=== PATIENT | male | born 2000 | race Caucasian/White ===

== ENCOUNTER 2021-03-22 16:21 | Emergency (ER) | payer SELFPAY ==
[~2021-03-22] VITALS: Ht 172.7 cm; Wt 75.0 kg
[2021-03-22] MEDS ORDERED: HYDROCODONE/ACETAMINOPHEN 5/325MG TABLET PO ONE (17:00)
[2021-03-22] MEDS ORDERED: ONDANSETRON 4MG ODT PO ONE (17:00)
[2021-03-22 17:29] VITALS: BP 119/68
[2021-03-22] MEDS ORDERED: IBUP-2029 MT (17:53)
== END 2021-03-22 18:07 | disposition home or self-care (01) ==
LOC: ER 16:21
DX: S60.211A Contusion of right wrist, initial encounter (principal); Z79.899 Other long term (current) drug therapy; V49.88XA Car occupant (driver) (passenger) injured in other specified transport accidents, initial encounter; Y93.89 Activity, other specified; Y92.89 Other specified places as the place of occurrence of the external cause; Y99.8 Other external cause status
CPT/HCPCS: 73090; 99283; Q0162

== ENCOUNTER 2024-05-08 09:11 | Emergency (ER) | payer SELFPAY ==
[~2024-05-08] VITALS: Ht 165.1 cm; Wt 63.5 kg
[~2024-05-08 09:11] MED LIST: IBUP-2029 MT
[2024-05-08 09:17] VITALS: O2SAT 99
[2024-05-08 10:00] LABS: HEMATOCRIT. 48.6 % (42.0-52.0); HEMOGLOBIN. 16.6 g/dL (14.0-18.0); MEAN CORPUSCULAR HEMOGLOBIN 29.4 pg (28.0-32.0); MEAN CORPUSCULAR HGB CONC 34.1 g/dL (31.0-37.0); MEAN CORPUSCULAR VOLUME 86.4 fL (80.0-94.0); MEAN PLATELET VOLUME 10.9 fl (7.4-10.4); PLATELET 247 x1000/uL (130-400); RED BLOOD CELL COUNT 5.62 mill/uL (4.7-6.1)
[2024-05-08 10:02] LABS: DIFFERENTIAL COMMENT 1
[2024-05-08] MEDS: ONDANSETRON HCL 4MG/2ML INJ IV ONE (10:02)
[2024-05-08] MEDS: TETANUS, DIPHTHERIA, PERTUSSIS VAC/PF 0.5ML (>10YR OLD) IM ONE (10:02)
[2024-05-08] MEDS: KETOROLAC 15MG/ML VIAL IV ONE (10:02)
[2024-05-08 10:04] LABS: CHLORIDE 103 mEq/L (98-107); POTASSIUM 3.8 mEq/L (3.5-5.1); SODIUM 140 mEq/L (136-145)
[2024-05-08 10:06] LABS: CARBON DIOXIDE 23 mEq/L (21-32)
[2024-05-08 10:07] LABS: CALCIUM 10.6 mg/dL (8.7-10.4)
[2024-05-08 10:12] LABS: CREATININE 1.8 mg/dL (0.6-1.3); GLUCOSE 146 mg/dL (70-105); UREA NITROGEN BLOOD 20 mg/dL (9-23)
[2024-05-08 10:13] LABS: ALBUMIN 5.5 g/dL (3.2-4.8)
[2024-05-08 10:14] LABS: ALANINE AMINOTRANSFERASE 23 IU/L (10-49); ASPARTATE AMINOTRANSFERASE 40 IU/L (<34); BILIRUBIN DIRECT 0.4 mg/dL (<=3.0); BILIRUBIN TOTAL 1.2 mg/dL (0.1-1.0)
[2024-05-08 10:34] LABS: ETHANOL BLOOD < 10 mg/dL (<10)
[2024-05-08 12:41] LABS: CREATINE KINASE 825 IU/L (46-171)
[2024-05-08 12:50] LABS: PLATELET ESTIMATE NORMAL
[2024-05-08] MEDS: SODIUM CHLORIDE 0.9% 1,000 ML IV ONE (12:59)
[2024-05-08] MEDS: METOCLOPRAMIDE HCL 10MG/2ML VIAL IV ONE (12:59)
[2024-05-08 13:18] VITALS: BP 137/78; PULSE 79; RESP 18; TEMP 37.1; O2SAT 99
[2024-05-08] MEDS: IOHEXOL-300 100 ML BOTTLE ONE (15:30)
== END 2024-05-08 16:02 | disposition left against medical advice (07) ==
LOC: ER 09:11 → EDBEDREQ 13:10 → EDBEDREQTM 14:55 → ER 16:02
DX: S09.90XA Unspecified injury of head, initial encounter (principal); R11.2 Nausea with vomiting, unspecified; Y08.89XA Assault by other specified means, initial encounter; Y93.89 Activity, other specified; Y92.89 Other specified places as the place of occurrence of the external cause; Y99.8 Other external cause status
CPT/HCPCS: 80076; 80048; 80320; 82550; 83690; 85025; 36415; 70450; 71260; 74177; 90715; 90471; 96374; 96375; 99285; Q9967; J1885; J2765; J2405; J7030; G0480